=== PATIENT | male | born 1985 | race Two or more races ===

== ENCOUNTER 2018-01-15 04:52 | Emergency (ER) | payer MEDICAID, OTHER ==
[~2018-01-15] VITALS: Ht 180.3 cm; Wt 81.6 kg
[2018-01-15 06:11] VITALS: BP 122/82
[2018-01-15 07:20] LABS: Urine Bacteria FEW /hpf (None Seen); Urine Blood Negative /uL (Negative); Urine Specific Gravity 1.002 (1.001-1.035); Urine WBC 34 /hpf (0 - 3)
== END 2018-01-15 08:42 | disposition home or self-care (01) ==
LOC: ER 04:55
DX: N39.0 Urinary tract infection, site not specified (principal); Z91.013 Allergy to seafood; Z88.6 Allergy status to analgesic agent
CPT/HCPCS: 81001

== ENCOUNTER 2022-04-28 20:03 | Emergency (ER) | payer MEDICAID ==
[~2022-04-28] VITALS: Ht 182.9 cm; Wt 80.0 kg
[2022-04-28 20:21] VITALS: BP 130/85
== END 2022-04-28 20:24 | disposition left against medical advice (07) ==
LOC: ER 20:03 → EDUNIT# 20:03 → EDBD 20:03 → ER 20:24
DX: R07.9 Chest pain, unspecified (principal); Z53.21 Procedure and treatment not carried out due to patient leaving prior to being seen by health care provider
CPT/HCPCS: 93005